=== PATIENT | female | born 1985 | race Caucasian/White ===

== ENCOUNTER 2020-08-14 10:08 | Emergency (ER) | payer OTHER, SELFPAY ==
--- NOTE | 2020-08-14 10:11 | ED.GENADULT ---
HPI - General Adult General Chief complaint: Abdominal Pain Stated complaint: abd pain Time Seen by Provider: 08/14/20 10:11 Source: patient Mode of arrival: ambulatory Limitations: no limitations History of Present Illness HPI narrative: 35-year-old female patient presents to the [facility] with complaints of abdominal pain that started last night. Patient states it was more of a dull pain but when she woke up today the pain has increased. Patient does mention that the pain is increased after eating. Patient denies any injury to the abdomen area that she is aware of. Patient denies any fevers, body aches or chills. Denies nausea vomiting or diarrhea. Patient states her last bowel movement was this morning and was normal. Patient states she is currently on her cycle. Patient states she still does have her gallbladder and her appendix. Denies or breast-feeding at this time Related Data Home Medications Medication Instructions Recorded Confirmed naproxen sodium 220 mg capsule 600 mg PO ONCE PRN cap 08/03/20 Allergies Allergy/AdvReac Type Severity Reaction Status Date / Time No Known Allergies Verified 08/03/20 10:22 Review of Systems Review of Systems: Narrative: CONSTITUTIONAL: Denies fever, chills, or sweats. EYES: Denies visual changes, redness, or discharge. ENT: Denies rhinorrhea, congestion, sore throat, or otalgia. CARDIOVASCULAR: Denies chest pain, palpitations, or edema. RESPIRATORY: Denies cough or dyspnea. GASTROINTESTINAL: Positive abdominal pain, denies nausea, vomiting, or diarrhea. GENITOURINARY: Denies dysuria or hematuria. SKIN: Denies rash or itching. MUSCULOSKELETAL: Denies back pain, joint pain, or myalgia. NEUROLOGIC: Denies headache, numbness, or weakness. PSYCHIATRIC: Denies anxiety or depression. [facility] Past Medical History Medical History (Updated 08/14/20 @ 10:34 by CHRISTIAN Xie) Gestational hypertension Family History Family History Father Afib Heart disease Hypertension Hyperlipidemia Grandparent Heart disease Cerebrovascular accident Grandparent Heart disease Cerebrovascular accident Grandparent Cancer of stomach Multiple myeloma Other Family history of coronary artery disease Social History Social History Smoking status: Never smoker Smoking end date: 09/24/01 Alcohol intake: current Drinks per week: 2 Substance use: never Substance use type: does not use Additional occupation/education comments: pharmacist Gender identity (if verbalized by the patient): Female Comments At the time of my signature I agree with nursing past medical history, surgical, social, and family history. There is no relevant family history pertinent to the presenting complaint. Exam Narrative: Exam Narrative: GENERAL: Well-appearing, well-nourished, and in no acute distress. HEAD: Normocephalic, atraumatic. EYES: PERRLA and EOMI. ENT: Nares clear, no rhinorrhea or epistaxis. Mucous membranes moist. NECK: Supple. No lymphadenopathy CHEST: Clear to auscultation. No respiratory distress. HEART: Regular rate and rhythm. No murmur heard. Normal peripheral pulses. ABDOMEN: Soft, flat, nondistended. guarding noted, no rebound tenderness, or rigid. Patient does have pain to the right upper quadrant on palpation no pulsatilla masses. Bowel sounds present in all four quadrants. No organomegaly. Negative Velarde?s sign. No periumbicial tenderness. No Supra public tenderness or distension. Good femoral pulses bilaterally. No hernia noted. No scars or surface trauma. Patient does say that the pain increases when laying flat. EXTREMITIES: Normal range of motion. No edema. SKIN: Warm, dry, no rash. NEURO: No focal deficits. Alert and oriented x3. Course Vital Signs Vital signs: Vital Signs Temperature 36.9 C 08/14/20 10:19 Pulse Rate 9
[2020-08-14 10:19] VITALS: BP 166/80; PULSE 92; RESP 18; TEMP 36.9; O2SAT 100
--- NOTE | 2020-08-14 10:27 | PC.NURSE ---
Siri De NP spoke with Guadalupe WHALEN at [facility]
--- NOTE | 2020-08-14 10:29 | PC.NURSE ---
report called to Shakira RITCHIE Appropriate paperwork signed for transfer
== END 2020-08-14 10:36 | disposition short-term general hospital (02) ==
PROVIDERS: Emergency Provider Nurse Practitioner Family; PCP Family Medicine
DX: R10.11 Right upper quadrant pain (principal)
CPT/HCPCS: 81003; 81025; 99213; G0463

== ENCOUNTER 2020-08-14 10:44 | Emergency (ER) | payer OTHER, SELFPAY ==
--- NOTE | ~2020-08-14 | CT_ITS ---
EXAMINATION: CT abdomen pelvis w con EXAM DATE: 08/14/2020 13:40 INDICATION: Right upper quadrant pain. TECHNIQUE: Spiral CT of the abdomen and pelvis was performed following intravenous injection of 100 m L Omnipaque 350. Axial, coronal and sagittal images were reviewed. The dose-length product (DLP) fo r this examination was 926.43 mGy-cm. The exposure was tailored according to patient size (auto mA e xposure control), and iterative reconstruction (ASIR) was used as additional dose reduction technique . There is no prior study for comparison. FINDINGS: The liver, spleen, adrenal glands and pancreas are unremarkable. The gallbladder is contra cted but otherwise unremarkable. Portal and splenic veins are patent. Kidneys enhance symmetrically . There is no hydronephrosis. There is IUD which appears to be centrally located within the endome trium, expected position. Endovaginal device probably pessary. The bladder is unremarkable. There i s no retroperitoneal or pelvic lymphadenopathy. Most of the appendix is normal. The tip of the appendix appears mildly dilated and fluid-filled, but without adjacent inflammation. It measures 9 mm in diameter, see image 118. This is in the expected l ocation for the appendix, for clinical correlation. The stomach and small bowel are unremarkable. T here is expected amount of colonic stool. No free intraperitoneal gas. The heart is normal in siz e. There are no pericardial or pleural effusions. The lung bases are unremarkable. There are no os teoblastic or osteolytic lesions identified. IMPRESSION: 1. Mildly dilated, fluid-filled appendix tip without adjacent inflammation. Can't exclude tip append icitis, check for right lower quadrant tenderness. 2. Otherwise unremarkable exam. Reviewed, dictated and finalized at location A. UCT DEMONSTRATOR IMPRESSION: 1. Mildly dilated, fluid-filled appendix tip without adjacent inflammation. Ca n't exclude tip appendicitis, check for right lower quadrant tenderness. 2. Otherwise unremarkable exam.
--- NOTE | ~2020-08-14 | US_ITS ---
EXAMINATION: US right upper quadrant EXAM DATE: 08/14/2020 12:39 INDICATION: RUQ pain after eating. TECHNIQUE: Multiple grayscale and Doppler images of the abdomen right upper quadrant were obtained (b y a technologist who performed the scan) and subsequently reviewed. Data sheet not available at time of dictation. There is no prior study for comparison. FINDINGS: The pancreatic head and body are normal in appearance. The pancreatic tail is not visualized. The l iver has normal echogenicity and contour. There are no focal liver lesions identified. There is no evidence of intrahepatic biliary duct dilation. Portal venous flow was seen in the hepatopedal, nor mal direction and has normal Doppler waveform. No right-sided hydronephrosis. Common bile duct measures 3 mm, which is normal. The gallbladder wall is normal in thickness, with ex pected amount of distention. No sonographic evidence of pericholecystic fluid. There is no cholelit hiases. IMPRESSION: 1. Unremarkable abdominal ultrasound exam. Reviewed, dictated and finalized at location A. MANAGEMENT CLERK
[2020-08-14 10:49] VITALS: BP 145/79; PULSE 79; RESP 18; TEMP 36.3; O2SAT 99
--- NOTE | 2020-08-14 12:17 | ED.ABDPAIN ---
HPI - Abdominal Pain General Chief Complaint: Abdominal Pain <Guadalupe Joshi PA-C - Last Filed: 08/14/20 16:01> Stated Complaint: abdominal pain <Guadalupe Joshi PA-C - Last Filed: 08/14/20 16:01> Time Seen by Provider: 08/14/20 11:39 <Guadalupe Joshi PA-C - Last Filed: 08/14/20 16:01> Source: patient <MACIEJ Dugan Last Filed: 08/14/20 16:01> Mode of arrival: ambulatory <MACIEJ Dugan Last Filed: 08/14/20 16:01> Limitations: no limitations <Guadalupe Joshi PA-C - Last Filed: 08/14/20 16:01> History of Present Illness HPI narrative: This is a 35 year old female that presents to the ER for RUQ abdominal pain since last night. Reports after eating dinner she started to have sharp right upper quadrant abdominal pain. Reports this lasted for several hours and was finally relieved. Reports again this morning after eating breakfast she started to have abdominal pain. Reports she was seen at the urgent care and sent here for further evaluation. Denies fever, nausea, vomiting, dysuria, hematuria. <Guadalupe Joshi PA-C - Last Filed: 08/14/20 16:01> Related Data Allergies/Adverse Reactions: Allergies Allergy/AdvReac Type Severity Reaction Status Date / Time No Known Allergies Verified 08/14/20 10:51 <Guadalupe Joshi PA-C - Last Filed: 08/14/20 16:01> Review of Systems Review of Systems: Narrative: CONSTITUTIONAL: Denies fever GASTROINTESTINAL: Reports abdominal pain. Denies nausea, vomiting, or diarrhea. GENITOURINARY: Denies dysuria or hematuria. MUSCULOSKELETAL: Denies back pain <MACIEJ Dugan Last Filed: 08/14/20 16:01> All systems reviewed & are unremarkable except as noted in HPI and below <Guadalupe Joshi PA-C - Last Filed: 08/14/20 16:01> [facility] Past Medical History Medical History: Medical History (Updated 08/14/20 @ 15:58 by Guadalupe Joshi PA-C) Gestational hypertension <Guadalupe Joshi PA-C - Last Filed: 08/14/20 16:01> Family History Family History: Family History Father Afib Heart disease Hypertension Hyperlipidemia Grandparent Heart disease Cerebrovascular accident Grandparent Heart disease Cerebrovascular accident Grandparent Cancer of stomach Multiple myeloma Other Family history of coronary artery disease <Guadalupe Joshi PA-C - Last Filed: 08/14/20 16:01> Social History Social History: Social History Smoking status: Never smoker Smoking end date: 09/24/01 Alcohol intake: current Drinks per week: 2 Substance use: never Substance use type: does not use Additional occupation/education comments: pharmacist Gender identity (if verbalized by the patient): Female <Guadalupe Joshi PA-C - Last Filed: 08/14/20 16:01> Exam Narrative: Exam Narrative: GENERAL: Well-appearing, obese, and in no acute distress. HEAD: Normocephalic, atraumatic. EYES: EOMI. CHEST: Clear to auscultation. No respiratory distress. No wheezes rales or rhonchi HEART: Regular rate and rhythm. No murmur heard. Normal peripheral pulses. ABDOMEN: Soft, nondistended, normal active bowel sounds. Tender to palpation in the right upper quadrant, without guarding. No CVA tenderness EXTREMITIES: Normal range of motion. No edema. SKIN: Warm, dry, no rash. NEURO: No focal deficits. Alert and oriented x3. PSYCH: Normal mood and affect <Guadalupe Joshi PA-C - Last Filed: 08/14/20 16:01> Course Vital Signs Vital signs: Vital Signs Temperature 97.4 F L 08/14/20 10:49 Pulse Rate 79 08/14/20 10:49 Respiratory Rate 18 08/14/20 10:49 Blood Pressure 145/79 H 08/14/20 10:49 Pulse Oximetry 99 08/14/20 10:49 Temperature 97.4 F L 08/14/20 10:49 Pulse Rate 81 08/14/20 16:17 Respiratory Rate 14 08/14/20 16:17 Blood Pressure 143/80 H 08/14/20 16:17 Pulse Ox
[2020-08-14 12:27] VITALS: BP 147/91; PULSE 79; RESP 17; O2SAT 99
--- NOTE | 2020-08-14 12:29 | PC.NURSE ---
Pt to U/S via WC.
[2020-08-14 12:34] LABS: Basophils Absolute Auto 0.1 K/mm3 (0.0-0.1); Basophils Percent Auto 0.5 % (0.2-1.2); Eosinophils Absolute Auto 0.1 K/mm3 (0-0.3); Hematocrit 41.3 % (37.0-47.0); Hemoglobin 13.9 g/dL (12.0-15.0); Immature Granulocyte Absolute 0.03 K/mm3 (0.00-0.031); Immature Granulocyte Percent A 0.3 % (0-0.5); Lymphocytes Absolute Auto 1.85 K/mm3 (0.9-3.2); Lymphocytes Percent Auto 18.1 % (18.3-44.2); Mean Corpuscular HGB Conc 33.7 g/dl (32-36); Mean Corpuscular Hemoglobin 31.2 pg (26-34); Mean Corpuscular Volume 92.8 fl (80-100); Mean Platelet Volume 10.8 fl (7.4-10.4); Monocytes Absolute Auto 0.7 K/mm3 (0.1-0.6); Monocytes Percent Auto 7.1 % (2.6-8.5); Neutrophils Absolute Auto 7.5 K/mm3 (1.3-6.7); Platelet Count Result 256 k/mm3 (150-375); Red Blood Count 4.45 M/mm3 (4.2-5.4); Red Cell Distribution Width 12.8 % (11.5-14.5); White Blood Count 10.2 K/mm3 (4.5-10.0)
[2020-08-14 12:42] LABS: Add Urine Microscopic? NO; Appearance Urine Clear (Clear); Bacteria Urine Trace /hpf; Bilirubin Urine Negative (Negative); Blood Urine Negative (Negative); Color Urine Colorless (Yellow); Glucose Urine UA Negative (Negative); Ketones Urine Negative (Negative); Leukocyte Esterase Ur Negative LEU/UL (Negative); Nitrate Urine Negative (Negative); Protein Urine Negative (Negative); RBC Urine 0-2 /hpf (0-2); Specific Grav Ur 1.008 (1.001-1.035); Squamous Epithelial Cell Urine Rare /hpf (Few); Urobilinogen Urine Negative mg/dL (<2.0); WBC Urine 0-3 /hpf
[2020-08-14 12:51] LABS: Alanine Aminotransferase 12 U/L (4-35); Albumin Level 4.3 g/dL (3.5-5.1); Alkaline Phosphatase 57 U/L (38-126); Anion Gap 9 mmol/L (8-16); Aspartate Amino Transferase 21 U/L (14-36); Bilirubin,Total 0.5 mg/dL (0.2-1.3); Blood Urea Nitrogen 14 mg/dL (7-17); Calcium 9.3 mg/dL (8.4-10.2); Carbon Dioxide 22 mmol/L (22-30); Chloride 108 mmol/L (98-107); Estimated CRCL calculation 155 ml/min; Estimated Glomerular Filt Rate > 60; Glucose 100 mg/dL (65-105); Lipase 65 U/L (23-300); Potassium 4.4 mmol/L (3.4-5.0); Sodium 139 mmol/L (137-145)
--- NOTE | 2020-08-14 13:36 | PC.NURSE ---
Pt to CT scan via WC.
[2020-08-14 13:56] VITALS: BP 126/82; PULSE 63; RESP 14; O2SAT 100
[2020-08-14 15:42] VITALS: BP 130/82; PULSE 68; RESP 15; O2SAT 100
[2020-08-14 16:17] VITALS: BP 143/80; PULSE 81; RESP 14; O2SAT 97
== END 2020-08-14 16:18 | disposition home or self-care (01) ==
PROVIDERS: Physician Assistant; Emergency Provider General Practice; PCP Family Medicine
DX: R10.11 Right upper quadrant pain (principal)
CPT/HCPCS: 36415; 74177; 76705; 80053; 81003; 81025; 83690; 85025; 99284; Q9967

== ENCOUNTER 2020-08-19 02:51 | Observation (INO) | payer OTHER, SELFPAY ==
[2020-08-19] VITALS (16 sets, daily range): BP systolic 101–134; BP diastolic 52–86; PULSE 56–81; RESP 15–24; TEMP 36.1–36.7; O2SAT 93–100; BMI 35.7
--- NOTE | ~2020-08-19 | CT_ITS ---
EXAMINATION: CT abdomen pelvis w con DATE: 08/19/2020 04:20 INDICATION: Right abdominal pain. TECHNIQUE: Computed tomography (CT) of the abdomen and pelvis was performed with 100 mL Omnipaque 350 intravenous contrast. Automated exposure control and iterative reconstruction technique were employe d. The dose-length product was 817.79 mGy-cm. COMPARISON: CT abdomen and pelvis 08/14/2020 FINDINGS: The visualized portions of the lung bases demonstrate mild atelectasis in the right. No ple ural effusion. The heart size is normal. No pericardial effusion. The liver, gallbladder, spleen, archibald creas, adrenal glands, and kidneys are normal. There is an intrauterine device in expected position. There are no dilated loops of bowel. The tip of the appendix is bulbous and measures 11 mm. There are no pathologically enlarged lymph nodes. There is no free intraperitoneal fluid. The periuterine vein s and left ovarian vein are enlarged, consistent with pelvic venous insufficiency. There is mild bila teral sacroiliitis. IMPRESSION: 1. Stable bulbous tip of the appendix, which is indeterminate for acute appendicitis. 2. Pelvic venous insufficiency. 3. Bilateral sacroiliitis, which is most commonly seen with either ankylosing spondylitis or enteropa thy-associated arthritis. Reviewed, dictated and finalized at location A. PLANTATION WORKER IMPRESSION: 1. Stable bulbous tip of the appendix, which is indeterminate for acute appendi citis. 2. Pelvic venous insufficiency. 3. Bilateral sacroiliitis, which is most commonly seen with either ankylosing s pondylitis or enteropathy-associated arthritis.
[2020-08-19] MEDS: SODIUM CHLORIDE 0.9% IV 1,000 ML 999 ML IV CONT (03:14)
[2020-08-19] MEDS: ONDANSETRON INJ 4 MG/2 ML VIAL IV PUSH ×2 (03:16→10:44)
--- NOTE | 2020-08-19 03:22 | ED.ABDPAIN ---
HPI - Abdominal Pain General Chief Complaint: Abdominal Pain Stated Complaint: right abd pain Time Seen by Provider: 08/19/20 03:02 History of Present Illness HPI narrative: Patient is a 35-year-old female that presents to the emergency department with chief complaint of abdominal pain. Patient reports she was seen in the emergency department fairly recently had an ultrasound and CAT scan that showed questionable tip appendicitis. Patient states she was started on antibiotics and was followed up in the surgery clinic. The patient states she was doing fine at that point when she was seen in the clinic but then approximately 2 hours after she left the clinic she started having worsening abdominal pain. The patient states the pain is on the right side of her abdomen and is in the right middle quadrant. Patient states the pain is sharp does state that it is worse whenever she has bumps patient states that her appetite been has been a little decreased today as well. The patient denies vomiting denies diarrhea denies urinary symptoms. Related Data Home Medications Medication Instructions Recorded Confirmed naproxen 500 mg tablet 220 mg PO BID tablet 08/18/20 08/18/20 Allergies Allergy/AdvReac Type Severity Reaction Status Date / Time No Known Allergies Allergy Verified 08/19/20 02:52 Review of Systems Review of Systems: Narrative: CONSTITUTIONAL: Denies fever, chills, or sweats. EYES: Denies visual changes, redness, or discharge. ENT: Denies rhinorrhea, congestion, sore throat, or otalgia. CARDIOVASCULAR: Denies chest pain, palpitations, or edema. RESPIRATORY: Denies cough or dyspnea. GASTROINTESTINAL: Denies abdominal pain, nausea, vomiting, or diarrhea. GENITOURINARY: Denies dysuria or hematuria. SKIN: Denies rash or itching. MUSCULOSKELETAL: Denies back pain, joint pain, or myalgia. NEUROLOGIC: Denies headache, numbness, or weakness. PSYCHIATRIC: Denies anxiety or depression. A 10 system review of systems was completed on the patient and is negative except for what is stated in the HPI. Nursing and ancillary documentation was reviewed. [facility] Past Medical History Medical History Gestational hypertension Family History Family History Father Afib Heart disease Hypertension Hyperlipidemia Grandparent Heart disease Cerebrovascular accident Grandparent Heart disease Cerebrovascular accident Grandparent Cancer of stomach Multiple myeloma Other Family history of coronary artery disease Social History Social History Smoking status: Never smoker Smoking end date: 09/24/01 Alcohol intake: current Drinks per week: 2 Substance use: never Substance use type: does not use Additional occupation/education comments: pharmacist Gender identity (if verbalized by the patient): Female Exam Narrative: Exam Narrative: GENERAL: Well-appearing, well-nourished, and in no acute distress. HEAD: Normocephalic, atraumatic. EYES: PERRLA and EOMI. ENT: Nares clear, no rhinorrhea or epistaxis. Mucous membranes moist. NECK: Supple. CHEST: Clear to auscultation. No respiratory distress. HEART: Regular rate and rhythm. No murmur heard. Normal peripheral pulses. ABDOMEN: Soft, moderate tenderness in the right upper and right lower quadrant, nondistended, normal active bowel sounds. EXTREMITIES: Normal range of motion. No edema. SKIN: Warm, dry, no rash. NEURO: No focal deficits. Alert and oriented x3. PSYCH: Normal mood and affect. Course Course Emergency Course: Patient CT scan did not show significant interval changes still concerning for possible tip appendicitis patient's laboratory studies showed a white count of 10 the case was discussed with Dr. Marx who is on-call for general surgery the patient's pain was
[2020-08-19 03:24] LABS: Basophils Absolute Auto 0.1 K/mm3 (0.0-0.1); Basophils Percent Auto 0.5 % (0.2-1.2); Eosinophils Absolute Auto 0.2 K/mm3 (0-0.3); Eosinophils Percent Auto 1.8 % (0-4.4); Hematocrit 46.3 % (37.0-47.0); Hemoglobin 15.5 g/dL (12.0-15.0); Immature Granulocyte Absolute 0.02 K/mm3 (0.00-0.031); Immature Granulocyte Percent A 0.2 % (0-0.5); Lymphocytes Absolute Auto 2.67 K/mm3 (0.9-3.2); Lymphocytes Percent Auto 25.3 % (18.3-44.2); Mean Corpuscular HGB Conc 33.5 g/dl (32-36); Mean Corpuscular Hemoglobin 30.9 pg (26-34); Mean Corpuscular Volume 92.4 fl (80-100); Mean Platelet Volume 10.7 fl (7.4-10.4); Monocytes Absolute Auto 0.6 K/mm3 (0.1-0.6); Monocytes Percent Auto 5.7 % (2.6-8.5); Neutrophils Percent Auto 66.5 % (45.5-73.1); Platelet Count Result 320 k/mm3 (150-375); Red Blood Count 5.01 M/mm3 (4.2-5.4); Red Cell Distribution Width 12.8 % (11.5-14.5); White Blood Count 10.6 K/mm3 (4.5-10.0)
[2020-08-19 03:41] LABS: Alanine Aminotransferase 14 U/L (4-35); Albumin Level 4.7 g/dL (3.5-5.1); Alkaline Phosphatase 66 U/L (38-126); Anion Gap 8 mmol/L (8-16); Aspartate Amino Transferase 25 U/L (14-36); Bilirubin,Total 0.6 mg/dL (0.2-1.3); Blood Urea Nitrogen 9 mg/dL (7-17); Calcium 9.9 mg/dL (8.4-10.2); Carbon Dioxide 30 mmol/L (22-30); Chloride 102 mmol/L (98-107); Estimated CRCL calculation 140 ml/min; Estimated Glomerular Filt Rate > 60; Glucose 114 mg/dL (65-105); Lipase 54 U/L (23-300); Sodium 140 mmol/L (137-145)
[2020-08-19 04:33] LABS: Add Urine Microscopic? YES; Appearance Urine Clear (Clear); Bilirubin Urine Negative (Negative); Blood Urine 1+ (Negative); Color Urine Yellow (Yellow); Glucose Urine UA Negative (Negative); Ketones Urine Negative (Negative); Leukocyte Esterase Ur Trace LEU/UL (Negative); Mucus Urine Few /lpf; Nitrate Urine Negative (Negative); Protein Urine Negative (Negative); RBC Urine 0-2 /hpf (0-2); Specific Grav Ur 1.017 (1.001-1.035); Squamous Epithelial Cell Urine Many /hpf (Few); Urobilinogen Urine Negative mg/dL (<2.0); WBC Urine 0-3 /hpf
--- NOTE | 2020-08-19 06:42 | ADMGEN ---
This patient, Vera Saunders, was admitted to 2 Medical Room [facility]-, 0640. Patient/family oriented to hospital policies and general routines including ID bracelet, bed and alarms, visiting hours, pain management, procedures, bathroom and other care routines, personal items, smoking policy, room service/diet, and visiting hours. Information on how to activate the Rapid Response Team has been discussed. Patient/Family are encouraged to report perceived risks to care and to ask questions if they do not understand what they are told or what they should do.
[2020-08-19] MEDS: SODIUM CHLORIDE 0.9% IV 1,000 ML 125 ML IV CONT ×2 (06:55→19:04)
--- NOTE | 2020-08-19 08:01 | PM.IMHP ---
H&P: HPI History of Present Illness Date/Time: 08/19/20 08:01 Chief complaint: Abdominal Pain, acute appendicitis Narrative: Vera Saunders is a 35 year old female presenting to ED c/o recurrent, worsening R sided abd pain. Pt had a similar episode about a wk ago and CT showed possible tip appendicitis. Pt was dc'd home c po abx and f/u c Dr. Ardon. Pt reports her symptoms resolved at that point. Pt represents c similar pain, nausea starting yesterday. Pt reports assoc poor appetite although no emesis. Pt also denies f/c. Review of Systems Constitutional: Constitutional: Reports anorexia, Denies chills, Denies fatigue, Denies fever(s), Denies headache(s), Denies malaise, Reports poor appetite, Denies weakness, Denies weight gain and Denies weight loss Eyes: Eyes: Reports no additional eye complaints ENT: Reports system reviewed and no additional complaints, except as documented Cardiovascular: Cardiovascular: Reports no additional cardiovascular complaints Respiratory: Respiratory: Reports no additional respiratory complaints Gastrointestinal: Gastrointestinal: Reports abdominal pain, Reports GI cramping, Denies diarrhea, Denies loose stools, Reports nausea and Denies vomiting Genitourinary: Genitourinary: Reports no additional female genitourinary complaints Musculoskeletal: Musculoskeletal: Reports no additional musculoskeletal complaints Integumentary/Breasts: Skin/Breast: Reports system reviewed and no additional complaints, except as docu Neurologic: Reports system reviewed and no additional complaints, except as documented Psychiatric: Psychiatric: Reports no additional psychiatric complaints Endocrine: Endocrine: Reports no additional endocrine complaints Hematologic/Lymphatic: Hematologic/Lymphatic: Reports no additional hematologic/lymphatic complaints Allergic/Immunologic: Allergic/Immunologic: Reports no additional allergic/immunologic complaints [facility] Past Medical History Medical History Gestational hypertension Family History Family History Father Afib Heart disease Hypertension Hyperlipidemia Grandparent Heart disease Cerebrovascular accident Grandparent Heart disease Cerebrovascular accident Grandparent Cancer of stomach Multiple myeloma Other Family history of coronary artery disease Social History Social History Smoking status: Never smoker Smoking end date: 09/24/01 Alcohol intake: current Drinks per week: 2 Substance use: never Substance use type: does not use Additional occupation/education comments: pharmacist Gender identity (if verbalized by the patient): Female Spiritual care concerns: No Comments pt denies any past surgical history Meds Home Medications and Allergies Home Medications Medication Instructions Recorded Confirmed Type naproxen 500 mg tablet 220 mg PO BID PRN tablet 08/18/20 08/19/20 History Allergies Allergy/AdvReac Type Severity Reaction Status Date / Time No Known Allergies Allergy Verified 08/19/20 06:52 Vital Signs Vital Signs - 24 hr 08/19/20 03:11 08/19/20 05:47 08/19/20 06:41 Temperature 36.7 C 36.6 C Pulse Rate 74 74 74 Respiratory Rate 16 16 16 Blood Pressure 127/78 128/86 134/71 Pulse Oximetry 99 98 98 08/19/20 06:53 08/19/20 06:54 Temperature 36.3 C L 36.3 C L Pulse Rate 72 72 Respiratory Rate 20 20 Blood Pressure 117/75 117/75 Pulse Oximetry 100 100 Exam Const: General: cooperative, well developed and acute distress mild Orientation/consciousness: patient oriented x3 HENMT: Head: normal to inspection, normocephalic and atraumatic Ears: hearing grossly normal bilaterally General nose exam: Normal external nose present Mouth: Yes moist mucous membranes Eyes: General: appearance normal, both eyes and all
--- NOTE | 2020-08-19 08:11 | WPDHPUPDATE1 ---
History and Physical Update Update Date/Time: 08/19/20 08:11 History and Physical has been reviewed, including an updated exam of the patient. There are NO changes in the patient's condition. Risks, benefits, and alternatives have been discussed and questions answered. Patient agrees to proceed with procedure.
--- NOTE | 2020-08-19 08:16 | WPDANESEPPF ---
Anes - Initial Pre Proc Eval Procedure: Operation Date: 08/19/20 10:00 Proposed Procedures p Laparoscopic Appendectomy - Mae Marx MD Date/Time: 08/19/20 08:16 Surgeon: Mae Marx MD Pre Op Diagnosis: Abdominal Pain, acute appendicitis Patient Data Age: 35 Gender: F Height: 1.68 m Weight: 100.5 kg Last Vital Signs Temp 36.3 C L 08/19/20 06:54 Pulse 72 08/19/20 06:54 Resp 20 08/19/20 06:54 BP 117/75 08/19/20 06:54 Pulse Ox 100 08/19/20 06:54 Allergies Allergy/AdvReac Type Severity Reaction Status Date / Time No Known Allergies Allergy Verified 08/19/20 06:52 Home Medications Medication Instructions Recorded Confirmed Type naproxen 500 mg tablet 220 mg PO BID PRN tablet 08/18/20 08/19/20 History Laboratory Tests 08/19/20 08/19/20 08/19/20 03:15 03:15 03:56 WBC 10.6 K/mm3 H K/mm3 (4.5-10.0) RBC 5.01 M/mm3 M/mm3 (4.2-5.4) Hgb 15.5 g/dL H g/dL (12.0-15.0) Hct 46.3 % % (37.0-47.0) MCV 92.4 fl fl (80-100) MCH 30.9 pg pg (26-34) MCHC 33.5 g/dl g/dl (32-36) RDW 12.8 % % (11.5-14.5) Plt Count 320 k/mm3 k/mm3 (150-375) MPV 10.7 fl H fl (7.4-10.4) Immature Gran % (Auto) 0.2 % % (0-0.5) Neut % (Auto) 66.5 % % (45.5-73.1) Lymph % (Auto) 25.3 % % (18.3-44.2) Kendall % (Auto) 5.7 % % (2.6-8.5) Eos % (Auto) 1.8 % % (0-4.4) Baso % (Auto) 0.5 % % (0.2-1.2) Lymph # (Auto) 2.67 K/mm3 K/mm3 (0.9-3.2) Kendall # (Auto) 0.6 K/mm3 K/mm3 (0.1-0.6) Eos # (Auto) 0.2 K/mm3 K/mm3 (0-0.3) Baso # (Auto) 0.1 K/mm3 K/mm3 (0.0-0.1) Abs Immat Gran (auto) 0.02 K/mm3 K/mm3 (0.00-0.031) Absolute Neuts (auto) 7.0 K/mm3 H K/mm3 (1.3-6.7) Absolute Nucleated RBC 0.0 K/mm3 K/mm3 (0.0-0.012) Nucleated RBC % 0.0 % % (0.0-0.2) Sodium 140 mmol/L mmol/L (137-145) Potassium 4.0 mmol/L mmol/L (3.4-5.0) Chloride 102 mmol/L mmol/L (98-107) Carbon Dioxide 30 mmol/L mmol/L (22-30) Anion Gap 8 mmol/L mmol/L (8-16) BUN 9 mg/dL D mg/dL (7-17) Creatinine 0.60 mg/dL L mg/dL (0.7-1.0) Estim Creat Clear Calc 140 ml/min ml/min Estimated GFR > 60 (59 - ) Glucose 114 mg/dL H mg/dL (65-105) Calcium 9.9 mg/dL mg/dL (8.4-10.2) Total Bilirubin 0.6 mg/dL mg/dL (0.2-1.3) AST 25 U/L U/L (14-36) ALT 14 U/L U/L (4-35) Alkaline Phosphatase 66 U/L U/L (38-126) Total Protein 8.0 g/dL g/dL (6.3-8.2) Albumin 4.7 g/dL g/dL (3.5-5.1) Lipase 54 U/L U/L (23-300) Urine Color Yellow (Yellow) Urine Appearance Clear (Clear) Urine pH 5.0 (5.0-9.0) Ur Specific [place] 1.017 (1.001-1.035) Urine Protein Negative mg/dL mg/dL (Negative) Urine Glucose (UA) Negative mg/dL mg/dL (Negative) Urine Ketones Negative mg/dL mg/dL (Negative) Ur Blood (Man) 1+ H (Negative) Urine Nitrate Negative (Negative) Urine Bilirubin Negative (Negative) Urine Urobilinogen Negative mg/dL mg/dL (<2.0) Leukocyte Esterase Rfl Trace AMARA/UL H AMARA/UL (Negative) Urine RBC 0-2 /hpf /hpf (0-2) Urine WBC 0-3 /hpf /hpf Ur Squamous Epith Cells Many /hpf H /hpf (Few) Urine Mucus Few /lpf H /lpf Patient hx anesthesia problems: none Family hx anesthesia problems: none PMFSH Past Medical History Medical History Gestational hypertension Family History Family History Father Afib Heart disease Hyp
--- NOTE | 2020-08-19 08:50 | PC.NURSE ---
To OR per bed, IV 20 in the right antecubital saline locked.
--- NOTE | 2020-08-19 09:58 | SUR.OPER ---
EBL:[id number]
[2020-08-19] MEDS: LACTATED RINGERS 1,000 ML 30 ML IV CONT ×2 (10:13)
--- NOTE | 2020-08-19 10:18 | P.OP_ITS ---
Procedure Note - Detailed Date of procedure: 08/19/20 Pre-op diagnosis: Abdominal Pain, acute appendicitis Post-op diagnosis: same Procedure performed: Laparoscopic appendectomy Description of procedure: The patient was brought into the operating room placed in the supine position. After adequate induction of general anesthesia, the patient was prepped and draped in normal sterile fashion. A time-out was then done to verify the patient's identity as well as the procedure being performed. I began by making a 5 mm incision in the infraumbilical region. A 5 mm Optiview trocar within used to gain access into the peritoneal cavity. Once into the peritoneal cavity, CO2 gas was insufflated. After adequate pneumoperitoneum was achieved, the laparoscope was placed into the 5 mm trocar. Under direct visualization, I went ahead and placed a further 5 mm suprapubic port as well as a 12 mm port in the left lower abdomen. At this point, I was able to visualize cecum. The cecum was retracted both cephalad and medial, and this allowed us to expose the appendix. The appendix was noted to be very dilated, injected, and inflamed. There was no obvious perforation of the appendix. I then grasped the appendix near the tip of the appendix and retracted both anterior and lateral. This allowed exposure of the base of the appendix with the cecum. I then created a window with the Tami dissector between the appendix and the mesoap pendix at the base of the appendix. Once this was achieved, a vascular staple load on the Endo-MADELINE was placed through the 12 mm port site and subsequently transected the mesoappendix. I then reloaded the Endo-MADELINE with a blue staple load and transected the base of the appendix with the cecum. Once the appendiceal specimen was completely detached, a Endo pouch was placed through the 12 mm port site. The appendix was placed into the Endo pouch and removed through the 12 mm port site. The appendix will now be sent to pathology for further review. I then visualized the right lower quadrant, both staple lines were noted to be intact and hemostatic. No other pathology was noted in the right lower quadrant or pelvis. I then moved the laparoscope to the 5 mm suprapubic port. I then visualized our port of entry at the 5 mm infraumbilical site. No iatrogenic injury or other pathology was seen in the upper abdomen. I then desufflated the abdomen and all ports were removed. The fascia of the 12 mm port site was closed with an 0 Vicryl figure of 8 suture. All port sites were then closed with 4 O Monocryl subcuticular suture. The patient tolerated the procedure well and was extubated in the operating room postoperatively. The patient will be transferred to the recovery room in stable condition. Anesthesia: GETA Surgeon: Mae Marx MD Estimated blood loss (mL): 5 Drains: No Packing: No Pathology: yes Complications: No immediate complications Condition: stable Disposition: PACU Findings: Acute uncomplicated appendicitis
[2020-08-19] MEDS: fentaNYL CITRATE INJ (*CRX) 100 MCG/2 ML VIAL 25 MCG IV PUSH ×4 (10:37→11:05)
[2020-08-19] MEDS: HYDROcodone/acetaminophen (*CRX) 5-325 MG TABLET 1 TAB PO ×2 (13:32→18:21)
[2020-08-19] MEDS: NAPROXEN SODIUM 220 MG TABLET PO (16:25)
[2020-08-19] MEDS: DOCUSATE SODIUM 100 MG CAPSULE PO (20:40)
[2020-08-19] MEDS: IBUPROFEN 600 MG TABLET PO (20:40)
[2020-08-20] MEDS: HYDROcodone/acetaminophen (*CRX) 5-325 MG TABLET 1 TAB PO ×2 (00:46→08:31)
[2020-08-20 02:03] VITALS: BP 118/57; PULSE 71; RESP 16; TEMP 36.8; O2SAT 97
[2020-08-20] MEDS: IBUPROFEN 600 MG TABLET PO (05:08)
[2020-08-20 06:00] VITALS: BP 124/58; PULSE 76; RESP 16; TEMP 36.8; O2SAT 100
--- NOTE | 2020-08-20 07:38 | PM.PNGS ---
Progress Note: A&P Assessment and Plan (1) Acute appendicitis: Qualifiers: Acute appendicitis type: with localized peritonitis Appendicitis abscess presence: without abscess Appendicitis gangrene presence: without gangrene Appendicitis perforation presence: without perforation Qualified Code(s): K35.30 - Acute appendicitis with localized peritonitis, without perforation or gangrene Code(s): K35.80 - Unspecified acute appendicitis Status: Acute Assessment and Plan: doing much better today. Proceed with discharge this morning. Instructions were given. Subjective Subjective Date/Time Seen: 08/20/20 07:38 Post Op day: 1 Patient reports: feels better and pain is less Exam GI: Inspection: non-distended and incision (All incisions healing well) GI Palp: Yes Soft to palpation and Yes Tenderness to palpation present (GI) ( mild appropriate tenderness) Auscultation: normal bowel sounds Objective Data Vital Signs Vital Signs: Vital Signs - 24 hr 08/19/20 10:13 08/19/20 10:28 08/19/20 10:43 Temperature 36.1 C L Pulse Rate 60 79 73 Respiratory Rate 24 H 18 18 Blood Pressure 126/60 129/61 125/67 Pulse Oximetry 100 97 95 08/19/20 10:58 08/19/20 11:10 08/19/20 11:32 Temperature 36.1 C L Pulse Rate 66 57 L 56 L Respiratory Rate 19 15 16 Blood Pressure 129/71 124/74 110/60 Pulse Oximetry 95 94 93 08/19/20 11:45 08/19/20 12:15 08/19/20 13:20 Temperature 36.1 C L 36.2 C L 36.2 C L Pulse Rate 81 81 63 Respiratory Rate 16 16 16 Blood Pressure 130/62 116/64 123/65 Pulse Oximetry 94 96 95 08/19/20 14:20 08/19/20 21:55 08/20/20 02:03 Temperature 36.1 C L 36.7 C 36.8 C Pulse Rate 72 72 71 Respiratory Rate 18 16 16 Blood Pressure 101/52 L 128/69 118/57 L Pulse Oximetry 100 100 97 08/20/20 06:00 Temperature 36.8 C Pulse Rate 76 Respiratory Rate 16 Blood Pressure 124/58 L Pulse Oximetry 100 Intake/Output Intake/Output: Intake & Output 08/17/20 08/18/20 08/19/20 08/20/20 23:59 23:59 23:59 23:59 Intake Total 3400 350 Balance 3400 350 Meds/Results Medications: Active Medications Generic Name Dose Route Start Last Admin Trade Name Freq PRN Reason Stop Dose Admin Hydrocodone Bitart/Acetaminophen 1 tab 08/19/20 11:12 08/20/20 00:46 Hydrocodone/Acetaminophen (*Crx) 5-325 Mg Tablet PO 1 tab Q4H PRN Administration Pain Rated 4-6 Docusate Sodium 100 mg 08/19/20 21:00 08/19/20 20:40 Docusate Sodium 100 Mg Capsule PO 100 mg Q12HR KELVIN Administration Ibuprofen 600 mg 08/19/20 20:23 08/20/20 05:08 Ibuprofen 600 Mg Tablet PO 600 mg Q6H PRN Administration Pain RATED 1 - 3 Ondansetron HCl 4 mg 08/19/20 05:46 08/19/20 10:44 Ondansetron Inj 4 Mg/2 Ml Vial IV PUSH 4 mg Q4H PRN Administration Nausea Radiology Results: ITS Impressions Abdomen/Pelvis CT 08/19/20 15:21 IMPRESSION: 1. Stable bulbous tip of the appendix, which is indeterminate for acute appendicitis. 2. Pelvic venous insufficiency. 3. Bilateral sacroiliitis, which is most commonly seen with either ankylosing spondylitis or enteropathy-associated arthritis.
[2020-08-20] MEDS: DOCUSATE SODIUM 100 MG CAPSULE PO (08:31)
--- NOTE | 2020-08-20 09:15 | WPDANESPN ---
Anes - Prog Note Post-Op Date/Time: 08/20/20 09:15 Cardiovascular status: normal Respiratory status: normal Airway patency: baseline Mental status: baseline Post-Op hydration status: normal Vital Signs: Last Vital Signs Temp 36.8 C 08/20/20 06:00 Pulse 76 08/20/20 06:00 Resp 16 08/20/20 06:00 BP 124/58 L 08/20/20 06:00 Pulse Ox 100 08/20/20 06:00 Pain Score (VAS): 3 I/O: Intake & Output 08/19/20 08/20/20 08/20/20 23:59 07:59 15:59 Intake Total 800 350 Balance 800 350 Laboratory Tests 08/19/20 03:15 08/19/20 03:15 Post-procedural complaints: none Patient Feedback: Patient satisfied with anesthetic care.
--- NOTE | 2020-08-27 14:30 | PM.DS ---
DS: Admitting Diagnosis Admitting Diagnosis Admitting Diagnosis: Abdominal Pain, acute appendicitis DS: Discharge Diagnosis Discharge Diagnosis (1) Acute appendicitis: Qualifiers: Acute appendicitis type: with localized peritonitis Appendicitis abscess presence: without abscess Appendicitis gangrene presence: without gangrene Appendicitis perforation presence: without perforation Qualified Code(s): K35.30 - Acute appendicitis with localized peritonitis, without perforation or gangrene Code(s): K35.80 - Unspecified acute appendicitis Status: Acute Assessment and Plan: s/p lap appy, please see op report for full details, await path, routine postop care, f/u 2wks DS: Summary Hospital Course Reason for hospitalization: acute appendicitis Hospital Course: The patient presented to the emergency department complaining of right-sided abdominal pain. Workup in the emergency department including imaging with significant of distal tip appendicitis. Of note, the patient had been previously seen for similar episode. The patient had initially resolved with p.o. antibiotics, however now presents with recurrence of symptoms. After discussion with the patient decision was made to proceed with appendectomy. Patient was taken to the operating room and laparoscopic appendectomy was done on 08/19, please see full operative report for details of the procedure. Postoperatively patient did well was transferred to the floor. Over the next day the patient was able to tolerate a diet and her pain was well controlled with p.o. analgesia. The patient will now be sent home with p.o. analgesia and Colace. She will follow up with me in 2 weeks. Status at Discharge Functional status at discharge: independent ambulation Overall status at discharge: patient is progressing back to baseline Time Spent with Patient Time attestation: Total time spent providing and/or coordinating discharge services: Time spent: Less than 30 minutes Exam Const: General: cooperative, comfortable and no acute distress Resp: Effort & Inspection: normal respiratory effort Auscultation: clear to auscultation bilaterally Cardio: Rate: regular rate Rhythm: regular rhythm GI: Inspection: normal to inspection, distended and incision GI Palp: Yes abdominal tenderness Other: soft, sl dist, tylor TTP, incision C/D/I DS: Data Data Completed and Pending Completed studies during hospitalization: Pending at discharge 08/19/20 09:45 Surgical [PTH] Routine Discharge Plan Discharge Attending physician on discharge: Mae Marx Consulting providers: Johny Rodriguez ; Sehy,Yadiel V. Discharging Clinician: Mae Marx Anticipated Discharge Date/Time: 08/19/20 13:00 Patient Disposition: Home, Self-Care Activity: other - see discharge instructions Diet: as tolerated and regular Wound Care Instructions: follow printed instructions and incision open to air Discharge Instructions: DISCHARGE INSTRUCTION SHEET FOR HERNIA, GALLBLADDER AND APPENDIX SURGERIES DR. MARX PATIENT TO TAKE HOME 1. May shower in 24 hours, no soaking in bath x 2weeks. 2. Call office for: Wound increasingly painful or bleeding Vomiting Fever of greater than 101 degrees 3. If no bowel movement for three days, take 1 oz. (30 ml) Milk of Magnesia or MiraLax 17g 1 to 2 times daily. 4. No heavy lifting > 10-15 pounds x weeks for hernia repairs and 2 weeks for laparoscopic cholecystectomy or appendectomy. 5. No driving for 3 days or while taking narcotic pain medications. 6. Ice to surgical site for 48 hours (30 min on, then 30 min off). 7. Up walking 10-30 minutes three times per day. 8. Resume previous home medications. 9. Follow-up 10-14 days in office for wound check or as previously scheduled. ([id number]) 10. Oral pain medications prescription to be sent to pharmac
== END 2020-08-20 09:30 | disposition home or self-care (01) ==
LOC: ANHED 05:51 → ANH2MED 06:33
PROVIDERS: Admitting Provider Surgery; Emergency Provider Emergency Medicine; PCP Family Medicine; Visit Provider Surgery
PROC: 0DTJ4ZZ Resection of Appendix, Percutaneous Endoscopic Approach (ICD-10-PCS; CPT 44970; principal; 2020-08-19 10:00)
DX: K35.30 Acute appendicitis with localized peritonitis, without perforation or gangrene (principal); I87.2 Venous insufficiency (chronic) (peripheral); M46.1 Sacroiliitis, not elsewhere classified; E66.9 Obesity, unspecified; Z68.35 Body mass index [BMI] 35.0-35.9, adult
CPT/HCPCS: 44970; 36415; 74177; 80053; 81001; 81025; 83690; 85025; 88304; 96361; 96365; 96375; 99285; A9270; G0378; J1170; J2250; J2405; J2543; J3010; J7030; J7120; Q9967

== ENCOUNTER 2021-06-30 14:42 | Emergency (ER) | payer OTHER, SELFPAY ==
[2021-06-30 14:50] VITALS: BP 129/67; PULSE 73; RESP 18; TEMP 36.6; O2SAT 100
--- NOTE | 2021-06-30 15:11 | ED.URI ---
HPI - URI/Sore Throat General Chief Complaint: Upper Respiratory Infection Stated Complaint: Sore Throat,Sinus Time Seen by Provider: 06/30/21 14:56 Source: patient and RN notes reviewed Mode of arrival: ambulatory Limitations: no limitations History of Present Illness HPI Narrative: Patient presents today with a 3-week history of sore throat and a 2-week history of nasal congestion and postnasal drip. Reports that yesterday her nasal secretions transition to green. States her ears have been itching and she has been scratching them profusely. She has been taking Zyrtec without relief. Last week she had negative COVID-19 test. Denies nausea, vomiting, diarrhea, fever. She has been vaccinated against COVID-19. MD elicited complaint: sore throat and nasal congestion Related Data Home Medications Medication Instructions Recorded Confirmed naproxen 500 mg tablet 220 mg PO BID PRN tablet 08/18/20 06/30/21 cetirizine 10 mg tablet 10 mg PO DAILY 09/07/20 06/30/21 Allergies Allergy/AdvReac Type Severity Reaction Status Date / Time No Known Allergies Allergy Verified 06/30/21 14:47 Review of Systems Review of Systems: CONSTITUTIONAL: Denies body aches, fever, chills, or sweats. EYES: Denies visual changes, redness, or discharge. ENT: Denies rhinorrhea, or otalgia.+ Congestion, postnasal drip, sore throat CARDIOVASCULAR: Denies chest pain, palpitations, or edema. RESPIRATORY: Denies cough or dyspnea. GASTROINTESTINAL: Denies abdominal pain, nausea, vomiting, or diarrhea. GENITOURINARY: Denies dysuria or hematuria. SKIN: Denies rash, itching, or wounds. MUSCULOSKELETAL: Denies back pain, joint pain, or myalgia. NEUROLOGIC: Denies headache, numbness, tingling, or weakness. PSYCH: Denies depression or anxiety. [facility] Past Medical History Medical History Gestational hypertension Surgical History Surgical History History of laparoscopic appendectomy 08/19/2020 Family History Family History Father Afib Heart disease Hyperlipidemia Hypertension Family history of coronary artery disease Grandparent Heart disease Cerebrovascular accident Family history of coronary artery disease Grandparent Heart disease Cerebrovascular accident Family history of coronary artery disease Grandparent Cancer of stomach Multiple myeloma Social History Social History Smoking status: Never smoker Smoking end date: 09/24/01 Alcohol intake: current Drinks per week: 2 Substance use: never Substance use type: does not use Additional occupation/education comments: pharmacist Gender identity (if verbalized by the patient): Female Sexual Orientation (if Verbalized by the Patient): Straight or Heterosexual Spiritual care concerns: No Comments At time of signature, I have reviewed and agree with nursing past medical, surgical, social and family history unless otherwise noted. Please see nursing chart for further information. There is no relevant family history pertinent to the presenting complaint Exam Narrative: GENERAL: Well-appearing, well-nourished, and in no acute distress. HEAD: Normocephalic, atraumatic. EYES: EOMI. No redness or drainage. Conjunctivae normal. ENT: Mucous membranes pink and moist. Nares congested. No rhinorrhea. TMs normal bilaterally. Patient has a small patch of erythematous honey crusting to the right preauricular area throat normal. Uvula midline. NECK: Normal AROM. Supple. No lymphadenopathy. CHEST: No respiratory distress. Clear to auscultation. HEART: Regular rate and rhythm. No murmur appreciated. Normal peripheral pulses. EXTREMITIES: Normal range of motion. No edema. SKIN: Warm, dry, no rash. Capillary refill normal. Normal s
== END 2021-06-30 15:20 | disposition home or self-care (01) ==
PROVIDERS: Emergency Provider Nurse Practitioner; PCP Family Medicine
DX: L01.00 Impetigo, unspecified (principal); J01.90 Acute sinusitis, unspecified
CPT/HCPCS: 87081; 87880; 99213; G0463

== ENCOUNTER 2022-08-20 07:28 | Emergency (ER) | payer OTHER, SELFPAY ==
--- NOTE | ~2022-08-20 | XR_ITS ---
XR lumbar spine 2-3V DATE: 08/20/2022 07:53 INDICATION: Low back pain, right sciatica. Back spasms. TECHNIQUE: AP, lateral, coned lateral lumbosacral views COMPARISON: None FINDINGS: IUD is noted. Normal alignment of the lumbar spine. No fracture or bone destruction or spondylolisthesis. The lumba r pedicles are intact. No spondylolisthesis. There is slight degenerative spurring at the anterosuper ior margin of the third lumbar vertebral body. Sacroiliac joints are intact, with some degenerative change. IMPRESSION: Minimal degenerative spurring of the lumbar spine Degenerative change at the sacroiliac joints Reviewed, dictated and finalized at location A. C PYTHON DEVELOPER
[2022-08-20 07:29] VITALS: BP 147/91; PULSE 90; RESP 16; TEMP 36.5; O2SAT 99
[2022-08-20] MEDS: KETOROLAC 30 MG/ML VIAL (*BKC) IV PUSH (07:58)
[2022-08-20] MEDS: diazePAM INJ (*CRX) 10 MG/2 ML SYRINGE 5 MG IV PUSH (07:58)
[2022-08-20] MEDS: SODIUM CHLORIDE 0.9% IV 1,000 ML 999 ML IV CONT (07:59)
--- NOTE | 2022-08-20 09:02 | ED.BACK ---
HPI - Back Pain/Injury General Chief Complaint: Back Pain/Injury Stated Complaint: lower back pain Time Seen by Provider: 08/20/22 07:34 History of Present Illness HPI Narrative: Patient is a 37-year-old female who presents ER with low back pain. Ongoing for 3 days. Sharp 660 mg naproxen last night and then 650 mg of Tylenol today without relief. No fevers or chills or sweats. No lower extremity numbness or tingling but has pain with going from sitting to standing. Has history of sciatic type. No recent trauma or injury that she notes. No fevers or chills or sweats. Related Data Home Medications Medication Instructions Recorded Confirmed cetirizine 10 mg tablet (Zyrtec) 10 mg PO DAILY 09/07/20 08/08/22 levonorgestrel 20 mcg/24 hours (8 20 mcg intrauterine PER PKG DIR 06/30/21 08/08/22 yrs) 52 mg intrauterine device (Mirena) Allergies Allergy/AdvReac Type Severity Reaction Status Date / Time No Known Allergies Allergy Verified 08/08/22 13:49 Review of Systems Review of Systems: All systems reviewed & are unremarkable except as noted in HPI and below Constitutional: Constitutional: Denies chills and Denies fever(s) Musculoskeletal: Musculoskeletal: Reports back pain, Denies arthralgias and Denies joint swelling Integumentary/Breasts: Skin/Breast: Denies erythema and Denies rash Neurologic: Denies syncope, Denies focal weakness and Denies numbness PMF Past Medical History Medical History (Updated 08/20/22 @ 09:08 by Dc Ames MD) Endometriosis (~08/19/20) Gestational hypertension Psoriasis Surgical History Surgical History History of laparoscopic appendectomy 08/19/2020 Family History Family History Father Afib Heart disease Hyperlipidemia Hypertension Family history of coronary artery disease Grandparent Heart disease Cerebrovascular accident Family history of coronary artery disease Grandparent Heart disease Cerebrovascular accident Family history of coronary artery disease Grandparent Cancer of stomach Multiple myeloma Social History Social History (Updated 08/08/22 @ 13:44 by Beatris Gonzalez CMA) Smoking status: Never smoker Second hand tobacco smoke exposure: No Smoking end date: 09/24/01 Alcohol intake: current Drinks per week: 2 Substance use: never Substance use type: does not use Lack of Transportation: No Lack of Food: Never True Current Housing: I Have Housing Concerned About Future Housing: No Difficulty Paying Gas/Electric Bills: No Difficulty Paying for Meds: No Currently Unemployed: No Education: Master's Degree or Higher Difficulty w/ Childcare or Family Care: No Additional occupation/education comments: pharmacist Gender identity (if verbalized by the patient): Female Sexual Orientation (if Verbalized by the Patient): Straight or Heterosexual Spiritual care concerns: No Agree to blood products: Yes Exam Narrative: GENERAL: Well-appearing, well-nourished, and in no acute distress. HEAD: Normocephalic, atraumatic. CHEST: Clear to auscultation. No respiratory distress. HEART: Regular rate and rhythm. Normal peripheral pulses. BACK: No midline tenderness of the T/L-spine. There is right-sided paraspinal muscular discomfort in the lumbar region without pin point tenderness. Positive straight leg raise bilaterally. EXTREMITIES: Normal range of motion. No edema. SKIN: Warm, dry, no rash. NEURO: Alert and oriented x3. PSYCH: Normal mood and affect. Course Course Emergency Course: Still uncomfortable after Toradol and Valium and IV fluid. X-ray shows degenerative changes of the lumbosacral region of the spine. Discussed with patient recommend follow-up with PCP. Will place on Medrol Dosepak for home with muscle relaxers. Vital Signs Vital signs: Vital Signs Temperature 97
== END 2022-08-20 09:35 | disposition home or self-care (01) ==
PROVIDERS: Emergency Provider Emergency Medicine; PCP Family Medicine
DX: M54.40 Lumbago with sciatica, unspecified side (principal); N80.9 Endometriosis, unspecified; Z87.891 Personal history of nicotine dependence; Z97.5 Presence of (intrauterine) contraceptive device; M47.818 Spondylosis without myelopathy or radiculopathy, sacral and sacrococcygeal region
CPT/HCPCS: 72100; 96361; 96374; 96375; 99284; J1885; J3360; J7030

== ENCOUNTER 2023-08-02 14:57 | Emergency (ER) | payer OTHER, SELFPAY ==
[2023-08-02 15:13] VITALS: BP 125/66; PULSE 71; RESP 18; TEMP 36.2; O2SAT 99
--- NOTE | 2023-08-02 15:45 | ED.GENADULT ---
HPI - General Adult General Chief complaint: Upper Respiratory Infection Stated complaint: Sore Throat,Cough,Congestion Source: patient, RN notes reviewed and old records reviewed Mode of arrival: ambulatory Limitations: no limitations History of Present Illness HPI narrative: 38 year old female who presents to [facility] by daughter who is also ill, with complaints sinus pressure and cough since last Sunday. Patient reports no headache or body aches, states sinus pressure and some cough with some sore throat for the past 9 days. Patient denies any nausea or vomiting or diarrhea, has not taken any OTC medications for her symptoms. Patient reports no known fevers, states that she has taken honey for her sore throat. She is requesting strep test also since daughter is being tested. Has taken Zyrtec in the past but has not been routinely taking an antihistamine. MD complaint: sinus congestion, sinus pressure sore throat Onset (ago): day(s) (9) Severity: moderate Quality: aching Treatments prior to arrival: other (honey for her sore throat) Related Data Home Medications Medication Instructions Recorded Confirmed cetirizine 10 mg tablet (Zyrtec) 10 mg PO DAILY 09/07/20 08/02/23 levonorgestrel 21 mcg/24 hours (8 20 mcg intrauterine PER PKG DIR 06/30/21 08/02/23 yrs) 52 mg intrauterine device (Mirena) Allergies Allergy/AdvReac Type Severity Reaction Status Date / Time No Known Allergies Allergy Verified 08/02/23 15:22 Review of Systems Review of Systems: CONSTITUTIONAL: Denies malaise, chills, sweats, or fever. EYES: Denies visual changes, redness, or discharge. ENT: Reports rhinorrhea, congestion, sinus pain, no otalgia and positive for sore throat. CARDIOVASCULAR: Denies chest pain, palpitations, or edema. RESPIRATORY: Reports dry cough.? Denies dyspnea. GASTROINTESTINAL: Denies abdominal pain, nausea, vomiting, diarrhea SKIN: Denies rash or itching. MUSCULOSKELETAL: Denies myalgia. NEUROLOGIC: Denies headache. All systems reviewed & are unremarkable except as noted in HPI and below PMFSH Past Medical History Medical History Endometriosis (~08/19/20) Gestational hypertension Psoriasis Surgical History Surgical History History of laparoscopic appendectomy 08/19/2020 Family History Family History Father Afib Heart disease Hyperlipidemia Hypertension Family history of coronary artery disease Grandparent Heart disease Cerebrovascular accident Family history of coronary artery disease Grandparent Heart disease Cerebrovascular accident Family history of coronary artery disease Grandparent Cancer of stomach Multiple myeloma Social History Social History Smoking status: Never smoker Second hand tobacco smoke exposure: No Smoking end date: 09/24/01 Alcohol intake: current Drinks per week: 2 Substance use: never Substance use type: does not use Lack of Transportation: No Lack of Food: Never True Current Housing: I Have Housing Concerned About Future Housing: No Difficulty Paying Gas/Electric Bills: No Difficulty Paying for Meds: No Currently Unemployed: No Education: Master's Degree or Higher Difficulty w/ Childcare or Family Care: No Living arrangements: with family Occupation/Education: occupation Additional occupation/education comments: pharmacist Gender identity (if verbalized by the patient): Female Sexual Orientation (if Verbalized by the Patient): Straight or Heterosexual Spiritual care concerns: No Agree to blood products: Yes Comments At time of signature, agree with nursing past medical, surgical, social and family history. There is no relevant family history pertinent to the presenting compl
== END 2023-08-02 15:50 | disposition home or self-care (01) ==
PROVIDERS: Emergency Provider Registered Nurse; PCP Family Medicine
DX: J06.9 Acute upper respiratory infection, unspecified (principal); Z79.899 Other long term (current) drug therapy
CPT/HCPCS: 87081; 87880; 99213; G0463

== ENCOUNTER → 2023-08-22 08:53 | Outpatient (CLI) | payer OTHER, SELFPAY ==
--- NOTE | ~2023-08-22 | US_ITS ---
EXAMINATION: US transvaginal DATE: 08/22/2023 09:22 INDICATION: Displacement of IUD. Comparison:Ultrasound dated 05/04/2016 TECHNIQUE: Multiple transabdominal and endovaginal sonographic images of the pelvis performed. FINDINGS: The uterus measures 10.6 x 5.6 x 6.5 cm. IUD is identified in the endometrium. The endometr ial complex measures 7 mm.. The right ovary measures 4.8 x 3.9 x 3.8 cm and the left ovary measures 3.3 x 2.4 x 1.8 cm. There is a simple cyst of the right ovary measuring 3.7 cm. There are small follicles in each ovary. Normal do ppler signal in both ovaries. There is no free fluid in the pelvis. There are no abnormal masses seen on either side. IMPRESSION: 1. Simple right ovarian cyst measuring 3.7 cm. Reviewed, dictated and finalized at location B. ACTER ACTRESS
== END ==
PROVIDERS: PCP Nurse Practitioner; Visit Provider Nurse Practitioner
DX: T83.32XA Displacement of intrauterine contraceptive device, initial encounter (principal); N83.201 Unspecified ovarian cyst, right side
CPT/HCPCS: 76830

== ENCOUNTER 2024-08-09 18:48 | Emergency (ER) | payer OTHER, SELFPAY ==
--- NOTE | ~2024-08-09 | XR_ITS ---
EXAMINATION: XR chest 2V Exam Date/Time: 08/09/2024 19:20 CLINICAL VETERINARIAN HISTORY: crackles on right side. Comparison: None. RESULT: Lines, tubes, and devices: None. Lungs and pleura: Subsegmental opacities in the right lower lobe. Cardiomediastinal silhouette: Stable. Other: No acute osseous or upper abdominal finding. IMPRESSION: Subsegmental right lower lobe atelectasis/consolidation. Reviewed, dictated and finalized at location K. ICAL VETERINARIAN
--- NOTE | 2024-08-09 19:01 | ED.GENADULT ---
HPI - General Adult General Chief complaint: Upper Respiratory Infection Stated complaint: COUGH / Fever Time Seen by Provider: 08/09/24 19:01 Source: patient Mode of arrival: ambulatory Limitations: no limitations History of Present Illness HPI narrative: 39-year-old female patient presents to the [facility] with complaints of flu-like symptoms for the past 4 days. Patient states she has had fevers as high as 101, body aches, chills, coughing and feels like her chest is heavy. Patient states that son was diagnosed with bacterial pneumonia about a week and week or so ago. Patient states she has been helping to take Zyrtec to help with the drainage which has helped. Related Data Home Medications Medication Instructions Recorded Confirmed cetirizine 10 mg tablet (Zyrtec) 10 mg PO DAILY 09/07/20 08/09/24 levonorgestrel 21 mcg/24 hr (up to 20 mcg intrauterine PER PKG DIR 06/30/21 08/09/24 8 years) 52 mg intrauterine device (Mirena) Allergies Allergy/AdvReac Type Severity Reaction Status Date / Time No Known Allergies Allergy Verified 08/09/24 19:09 Review of Systems Review of Systems: CONSTITUTIONAL: Positive fever, chills, or sweats. EYES: Denies visual changes, redness, or discharge. ENT: positive rhinorrhea, congestion, denies sore throat, or otalgia. CARDIOVASCULAR: positive chest pain, denies palpitations, or edema. RESPIRATORY: positive cough denies dyspnea. GASTROINTESTINAL: Denies abdominal pain, nausea, vomiting, or diarrhea. GENITOURINARY: Denies dysuria or hematuria. SKIN: Denies rash or itching. MUSCULOSKELETAL: Denies back pain, joint pain, or myalgia. NEUROLOGIC: Denies headache, numbness, or weakness. PSYCHIATRIC: Denies anxiety or depression. [facility] Past Medical History Medical History Endometriosis (~08/19/20) Gestational hypertension Prediabetes Psoriasis Surgical History Surgical History History of laparoscopic appendectomy 08/19/2020 Family History Family History Father Afib Heart disease Hyperlipidemia Hypertension Family history of coronary artery disease Grandparent Heart disease Cerebrovascular accident Family history of coronary artery disease Grandparent Heart disease Cerebrovascular accident Family history of coronary artery disease Grandparent Cancer of stomach Multiple myeloma Social History Social History Smoking status: Never smoker Second hand tobacco smoke exposure: No Smoking end date: 09/24/01 Alcohol intake: current Drinks per week: 2 Substance use: never Substance use type: does not use Lack of Transportation: No Lack of Food: Never True Current Housing: I Have Housing Concerned About Future Housing: No Difficulty Paying Gas/Electric Bills: No Difficulty Paying for Meds: No Currently Unemployed: No Education: Master's Degree or Higher Difficulty w/ Childcare or Family Care: No Living arrangements: with family Occupation/Education: occupation Additional occupation/education comments: pharmacist Gender identity (if verbalized by the patient): Female Sexual Orientation (if Verbalized by the Patient): Straight or Heterosexual Spiritual care concerns: No Agree to blood products: Yes Comments At the time of my signature I agree with nursing past medical history, surgical, social, and family history. There is no relevant family history pertinent to the presenting complaint. Exam Narrative: GENERAL: Well-appearing, well-nourished, and in no acute distress. HEAD: Normocephalic, atraumatic. EYES: PERRLA and EOMI. ENT: Nares clear, no rhinorrhea or epistaxis. Mucous membranes moist. posterior pharynx no erythema, tonsillar enlargement, exudates or lesions present. Bilateral TMs are clear no erythema or foreign bodies canal. NECK: Supple. No lymphadenopathy CHEST: Patient does have some mild crackles noted to the right lower lobe on auscultation. No respiratory distress. HEART: Regular rate and rhythm. No murmur heard. Normal peripheral pulses. ABDOMEN: Soft, nontender, nondistended, normal active bowel sounds. EXTREMITIES: Normal range of motion. No edema. SKIN: Warm, dry, no rash. NEURO: No focal deficits. Alert and oriented x3. Course Course Level of Care: Express Care Visit Reevaluation(s) Reevaluation #1: re-evaluated patient notified her that her x-ray is consistent with pneumonia and therefore we will go ahead and treat with oral steroids, inhaler, antibiotic and Tessalon Perles for the cough. Discussed with patient that if she has worsening symptoms such as chest pain, shortness of breath of the fevers do not go away with despite antibiotics we have given her today then she needs to report to the emergency department for further evaluation. Date: 08/09/24 Time: 19:39 Vital Signs Vital signs: Vital Signs Temperature 36.9 C 08/09/24 19:11 Pulse Rate 97 08/09/24 19:11 Respiratory Rate 17 08/09/24 19:11 Blood Pressure 125/69 08/09/24 19:11 Pulse Oximetry 96 08/09/24 19:11 Oxygen Delivery Room Air 08/09/24 19:11 Temperature 36.9 C 08/09/24 19:11 Pulse Rate 97 08/09/24 19:11 Respiratory Rate 17 08/09/24 19:11 Blood Pressure 125/69 08/09/24 19:11 Pulse Oximetry 96 08/09/24 19:11 Oxygen Delivery Room Air 08/09/24 19:11 Vital signs reviewed. Medical Decision Making MDM Narrative Medical decision making narrative: plan care patient is to obtain a chest x-ray to rule out pneumonia, as well as the COVID, influenza and strep test Differential Diagnosis Differential Diagnosis: Differential diagnosis: Allergic rhinitis, chronic sinusitis, tonsillitis, acute sinusitis, infectious mononucleosis, seasonal influenza, pertussis, diphtheria, meningococcal disease, viral syndrome, viral bronchitis, RSV, COVID-19 Vital Signs Vital Signs: Vital Signs Temperature 36.9 C 08/09/24 19:11 Pulse Rate 97 08/09/24 19:11 Respiratory Rate 17 08/09/24 19:11 Blood Pressure 125/69 08/09/24 19:11 Pulse Oximetry 96 08/09/24 19:11 Oxygen Delivery Room Air 08/09/24 19:11 Temperature 36.9 C 08/09/24 19:11 Pulse Rate 97 08/09/24 19:11 Respiratory Rate 17 08/09/24 19:11 Blood Pressure 125/69 08/09/24 19:11 Pulse Oximetry 96 08/09/24 19:11 Oxygen Delivery Room Air 08/09/24 19:11 Critical Care Time Critical Care Time Critical Care Time: No Discharge Plan Discharge Clinical Impression: Pneumonia Patient Disposition: Home, Self-Care Condition: Stable Instructions: Antibiotic Form, Community Acquired Pneumonia (ED) Additional Instructions: Take your medication exactly as directed. Don't skip doses. Continue taking your antibiotics as directed until they are all gone - even if you start to feel better. This will prevent the pneumonia from coming back. Drink at least 8 glasses of water daily, unless directed otherwise. This helps to loosen and thin secretions so that you can cough them up. Use a cool-mist humidifier in your bedroom. Be sure to clean the humidifier daily. Coughing up mucus is normal. Don't use medications to suppress your cough unless your cough is dry, painful, or interferes with your sleep. You may use an expectorant if ordered by your doctor. Warm compresses or a heating pad on the lowest setting can be used to relieve chest discomfort. Use several times a day for 15 to 20 minutes at a time. (To prevent injuring your skin, be sure the temperature of the compress or heating pad is warm, not hot.) Get plenty of rest until your fever, shortness of breath, and chest pain go away. Plan to get a flu shot every year. Ask your doctor about pneumonia vaccinations. Call 911 right away if you have any of the following: Chest pain Trouble breathing Blue lips or fingernails Otherwise, call your doctor if you have any of the following: Fever above 101.5?F (38.6?C) Yellow, green, bloody, or smelly sputum More than normal mucus production Vomiting Prescriptions: New benzonatate 200 mg capsule 200 mg PO TID PRN (Reason: cough) 10 Days Qty: 30 0RF prednisone 20 mg tablet 40 mg PO DAILY 5 Days Qty: 10 0RF albuterol sulfate [Ventolin HFA] 90 mcg/actuation HFA aerosol inhaler 2 puff INHALATION .Q4 hours PRN (Reason: cough) Qty: 18 0RF azithromycin 250 mg tablet See Rx Instructions .ROUTE .COMPLEX Qty: 6 0RF Rx Instructions: For 250 mg dose pack: take 500 mg today (day 1), then 250 mg for 4 days (days 2-5) No Action Mirena 20 mcg/24 hours (7 yrs) 52 mg Intrauterine Device 20 mcg INTRAUTERINE PER PKG DIR cetirizine [Zyrtec] 10 mg tablet 10 mg PO DAILY Follow-up/Referrals: Jocelyne Garcia MD [Primary Care Provider] - Time of Disposition: 19:38
[2024-08-09 19:11] VITALS: BP 125/69; PULSE 97; RESP 17; TEMP 36.9; O2SAT 96
[2024-08-11 10:04] LABS: EDSTREPNEGPOS1 Negative (Negative)
[2024-08-11 10:04] LABS: EDCOVIDSCREEN Negative (Negative); EDINFLUASCREEN Negative (Negative); EDINFLUBSCREEN Negative (Negative)
== END 2024-08-09 19:40 | disposition home or self-care (01) ==
PROVIDERS: Emergency Provider Nurse Practitioner Family; PCP Family Medicine
DX: J18.9 Pneumonia, unspecified organism (principal); Z20.822 Contact with and (suspected) exposure to COVID-19; N80.9 Endometriosis, unspecified; R73.03 Prediabetes; L40.9 Psoriasis, unspecified; Z87.891 Personal history of nicotine dependence
CPT/HCPCS: 71046; 87081; 87426; 87804; 87880; 99213; G0463

== ENCOUNTER 2024-09-03 11:05 | Outpatient (CLI) | payer OTHER, SELFPAY ==
--- NOTE | ~2024-09-03 | US_ITS ---
EXAMINATION: US pelvic complete INDICATION: Ovarian cyst. Comparison:Ultrasound dated 08/22/2023 TECHNIQUE: Multiple transabdominal and endovaginal sonographic images of the pelvis performed. FINDINGS: The uterus measures 11.2 x 3.9 x 5.8 cm. There is an IUD in the endometrium. The endometria l complex measures 6 mm. The right ovary measures 4.5 x 2.7 x 3.8 cm and the left ovary measures 3.4 x 3.2 x 1.7 cm. There are right ovarian cysts, largest measuring 3.5 cm. There are small follicles in each ovary. Normal doppl er signal in both ovaries. There is no free fluid in the pelvis. There are no abnormal masses seen on either side. IMPRESSION: 1. Right ovarian cysts, largest measuring 3.5 cm. Reviewed, dictated and finalized at location B. DINGS AND GROUNDS SUPERVISOR
== END 2024-09-03 11:06 | disposition home or self-care (01) ==
LOC: MICIMG 11:06
PROVIDERS: PCP Family Medicine; Visit Provider Nurse Practitioner
DX: N83.201 Unspecified ovarian cyst, right side (principal)
CPT/HCPCS: 76856

== ENCOUNTER 2025-07-16 07:24 | Outpatient (CLI) | payer OTHER, SELFPAY ==
--- NOTE | ~2025-07-16 | MM_ITS ---
EXAMINATION: screening [facility] BI w syed INDICATION: Asymptomatic, referred for screening mammogram COMPARISON: Baseline TECHNIQUE: Digital Breast Tomosynthesis CC, MLO views of Both breasts were obtained with computer-aided detection to assist in interpretation of the study. FINDINGS: There are scattered areas of fibroglandular density. There is a circumscribed mass in the superior lateral right breast at posterior third. Elsewhere, there are no mammographic features of malignancy. IMPRESSION: 1. Right breast Mass. 2. No evidence of malignancy in the Left breast. RECOMMENDATION: Right breast ultrasound BI-RADS Category 0: Incomplete: Needs additional imaging evaluation. Reviewed, dictated and finalized at location B.
== END 2025-07-16 07:25 | disposition home or self-care (01) ==
LOC: MICIMG 07:25
PROVIDERS: PCP Student in an Organized Health Care Education/Training Program; Visit Provider Nurse Practitioner
DX: Z12.31 Encounter for screening mammogram for malignant neoplasm of breast (principal); R92.8 Other abnormal and inconclusive findings on diagnostic imaging of breast
CPT/HCPCS: 77063; 77067